=== PATIENT | male | born 1975 | race Caucasian/White ===

== ENCOUNTER 2025-04-16 16:09 | Emergency (ER) | payer BC ==
[~2025-04-16] VITALS: Ht 167.6 cm; Wt 68.0 kg
[2025-04-16 16:26] VITALS: BP 114/64; TEMP 37.2; O2SAT 100
[2025-04-16 16:28] VITALS: PULSE 71; RESP 18; O2SAT 99
[2025-04-16] MEDS ORDERED: CEPH500T MT (17:18)
[2025-04-16 18:35] LABS: CLARITY URINE CLEAR (CLEAR); COLOR URINE YELLOW (YELLOW); GLUCOSE URINE NEGATIVE (NEGATIVE); KETONES URINE TRACE (NEGATIVE); LEUKOCYTE ESTERASE URINE NEGATIVE (NEGATIVE); NITRITE URINE NEGATIVE (NEGATIVE); OCCULT BLOOD URINE NEGATIVE (NEGATIVE); PROTEIN URINE NEGATIVE (NEGATIVE); SPECIFIC GRAVITY URINE 1.026 (1.005-1.030)
== END 2025-04-16 17:26 | disposition home or self-care (01) ==
LOC: ER 16:09
DX: R39.9 Unspecified symptoms and signs involving the genitourinary system (principal)
CPT/HCPCS: 81003; 99283